=== PATIENT | female | born 1965 | race American Indian/Alaskan Native ===

== ENCOUNTER 2018-11-13 18:36 | Emergency (ER) | payer OTHER ==
--- NOTE | 2018-11-13 19:41 | Emergency Department Report ---
History of Present Illness - General Chief Complaint: Overdose Stated Complaint: CRYING OUT OF HELP/TOOK PILLS Time Seen by Provider: 11/13/18 19:09 Source: EMS Mode of arrival: Stretcher Limitations: No Limitations - History of Present Illness Initial Comments: 53-year-old female with a past medical history of multiple knee surgeries presents to the hospital complaints of overdose. Patient took 10 tablets of Dilaudid 2 mg pills and 5 tablets of diclofenac 50 mg pills between 5:30 and 6:30 PM. Patient is alert without any drowsiness. Patient states this was a cry for help. She has had multiple surgeries to her right knee since January the last surgery in April. Patient has been under pain management for less than one month. Dilaudid was not helping with pain. Patient recently has been trying Nucynta and Belbuca for pain cyst dialogue it was not helping. Her daughter also suggested CBD. 2 weeks ago patient had a nerve block done on the knee which actually worsened her pain. Patient has been feeling more depressed since pain has increased because she had to be re-dependent on her family members to move around the home. She admits to taking an excessive amount of the pills listed above as a "cry for help". Patient states if she truly wanted to kill herself she would have taken the whole bottle. She also contacted one of her family members and reread a verse in the Bible which made her feel better and seek medical care. - Related Data Home Medications Medication Instructions Recorded Confirmed Last Taken Belbuca 75 mcg SUBLINGUAL BID 11/13/18 11/13/18 Unknown Nucynta ER 50 mg PO BID 11/13/18 11/13/18 Unknown Allergies Allergy/AdvReac Type Severity Reaction Status Date / Time hydrocodone Allergy Itching Verified 11/13/18 20:40 morphine Allergy Itching Verified 11/13/18 20:40 oxycodone Allergy Itching Verified 11/13/18 20:40 ED Review of Systems ROS: Stated complaint: CRYING OUT OF HELP/TOOK PILLS Other details as noted in HPI Comment: All other systems reviewed and negative ED Past Medical Hx - Past Medical History Previous Medical History?: No - Surgical History Past Surgical History?: Yes Additional Surgical History: knee replacement bilateral, tubal ligation - Social History Smoking Status: Never Smoker Substance Use Type: None - Medications Home Medications: Home Medications Medication Instructions Recorded Confirmed Last Taken Type Belbuca 75 mcg SUBLINGUAL BID 11/13/18 11/13/18 Unknown History Nucynta ER 50 mg PO BID 11/13/18 11/13/18 Unknown History ED Physical Exam - General Limitations: No Limitations - Other Other exam information: General: No acute distress Head: Atraumatic Eyes: Normal appearance, Pupils equal and reactive to light, extraocular movements intact ENT: Normal oropharynx Neck: Normal appearance, no posterior or midline tenderness, no meningismus Chest: Clear to auscultation bilaterally, no wheezes, rales, or crackles CV: Regular rate and rhythm Abdomen: soft, nontender, nondistended, no rebound or guarding Back: Nontender Extremity: Right knee greater in size to the left knee from previous surgery. Tenderness to palpation limited movement Neuro: Alert and oriented 3, speech clear, no gross motor or sensory deficit Skin: No rash, redness, warmth ED Course Vital Signs 11/13/18 11/13/18 11/13/18 18:52 20:48 21:01 Temperature 97.8 F Pulse Rate 80 82 88 Respiratory 14 13 17 Rate Blood Pressure 141/67 147/76 Blood Pressure [Left] O2 Sat by Pulse 100 98 93 Oximetry 11/13/18 11/13/18 11/13/18 21:15 21:31 21:45 Temperature Pulse Rate 89 78 81 Respiratory 12 24 18 Rate Blood Pressure 147/76 162/93 162/93 Blood Pressure [Left] O2 Sat by Pulse 95 99 96 Oximetry 11/13/18 11/13/18 11/13/18 22:00 22:01 22:15 Temperature Pulse Rate 76 82 Respiratory 19 18 27 H Rate Blood Pressure 144/67 144/67 Blood Pressure [Left] O2 Sat by Pulse 96 86 Oximetry 11/13/18 11/13/18 11/13/18 22:31 22:32 22:33 Temperature Pulse Rate 75 76 Respiratory 8 L 18 20 Rate Blood Pressure 132/54 132/54 Blood Pressure [Left] O2 Sat by Pulse 93 100 Oximetry 11/13/18 11/13/18 11/13/18 22:45 23:01 23:15 Temperature Pulse Rate 90 73 76 Respiratory 17 23 25 H Rate Blood Pressure 132/54 123/50 123/50 Blood Pressure [Left] O2 Sat by Pulse 98 98 100 Oximetry 11/13/18 11/13/18 11/14/18 23:31 23:45 00:00 Temperature Pulse Rate 76 94 H 88 Respiratory 22 31 H 27 H Rate Blood Pressure 117/57 117/57 129/94 Blood Pressure [Left] O2 Sat by Pulse 100 99 93 Oximetry 11/14/18 11/14/18 11/14/18 00:15 00:31 00:45 Temperature Pulse Rate 95 H Respiratory 17 19 14 Rate Blood Pressure 129/94 129/94 165/77 Blood Pressure [Left] O2 Sat by Pulse 96 98 Oximetry 11/14/18 11/14/18 11/14/18 01:01 01:15 01:31 Temperature Pulse Rate Respiratory 29 H 26 H 22 Rate Blood Pressure 142/69 129/94 129/94 Blood Pressure [Left] O2 Sat by Pulse 98 98 97 Oximetry 11/14/18 11/14/18 11/14/18 01:45 02:01 02:15 Temperature Pulse Rate Respiratory 15 17 Rate Blood Pressure 143/78 161/84 161/84 Blood Pressure [Left] O2 Sat by Pulse 96 99 98 Oximetry 11/14/18 11/14/18 11/14/18 02:31 02:45 03:00 Temperature Pulse Rate Respiratory 21 21 18 Rate Blood Pressure 161/84 161/84 143/61 Blood Pressure [Left] O2 Sat by Pulse 99 96 99 Oximetry 11/14/18 11/14/18 11/14/18 03:15 03:31 03:45 Temperature Pulse Rate Respiratory 14 30 H 26 H Rate Blood Pressure 143/61 143/61 143/61 Blood Pressure [Left] O2 Sat by Pulse 97 96 99 Oximetry 11/14/18 11/14/18 11/14/18 04:00 04:15 04:31 Temperature Pulse Rate Respiratory 30 H Rate Blood Pressure 136/65 136/65 136/65 Blood Pressure [Left] O2 Sat by Pulse 98 98 97 Oximetry 11/14/18 11/14/18 11/14/18 04:49 05:00 05:15 Temperature Pulse Rate 89 79 98 H Respiratory 26 H 16 17 Rate Blood Pressure 136/65 150/66 150/66 Blood Pressure [Left] O2 Sat by Pulse 98 99 Oximetry 11/14/18 11/14/18 11/14/18 05:31 05:45 06:01 Temperature Pulse Rate 89 100 H Respiratory 19 16 18 Rate Blood Pressure 150/66 136/65 155/89 Blood Pressure [Left] O2 Sat by Pulse 99 99 98 Oximetry 11/14/18 11/14/18 11/14/18 06:15 06:31 06:45 Temperature Pulse Rate Respiratory 16 14 16 Rate Blood Pressure 155/89 155/89 155/89 Blood Pressure [Left] O2 Sat by Pulse 98 98 98 Oximetry 11/14/18 11/14/18 11/14/18 08:00 18:17 20:00 Temperature 98.6 F 98.1 F 98.1 F Pulse Rate 87 84 89 Respiratory 16 18 18 Rate Blood Pressure Blood Pressure 149/79 156/78 151/89 [Left] O2 Sat by Pulse 98 99 98 Oximetry 11/15/18 11/15/18 11/15/18 00:00 03:00 07:00 Temperature 98.2 F 98 F Pulse Rate 83 84 Respiratory 18 20 18 Rate Blood Pressure Blood Pressure 151/93 160/94 [Left] O2 Sat by Pulse 98 98 98 Oximetry 11/15/18 11/15/18 11/15/18 08:34 13:00 19:50 Temperature 97.9 F 98.2 F Pulse Rate 89 76 Respiratory 16 18 18 Rate Blood Pressure Blood Pressure 176/95 154/82 [Left] O2 Sat by Pulse 98 100 Oximetry - Reevaluation(s) Reevaluation #1: 11/14/18 00:42 Patient observed for over 6 hours and no signs of mental or respiratory depression. Awaiting urine collection and mental health evaluation - Consultations Consultation #1: 11/13/18 19:30 CASE D/W CLAIRE with poison control. Patient did not take a toxic dose of diclofenac. She states that Dilaudid peaks in one hour. Recommends 4 hour observation. Patient requires Narcan and then recommends 4-6 hours of observation after last Narcan dose prior to medical clearance. Respiratory and mental depression with intoxication. Recommends rule out coingestions. ED Medical Decision Making - Lab Data Result diagrams: 11/13/18 19:38 11/13/18 19:38 Lab Results 11/13/18 11/13/18 11/13/18 Range/Units 19:38 19:38 19:38 WBC 6.6 (4.5-11.0) K/mm3 RBC 4.33 (3.65-5.03) M/mm3 Hgb 10.5 (10.1-14.3) gm/dl Hct 32.4 (30.3-42.9) % MCV 75 L (79-97) fl MCH 24 L (28-32) pg MCHC 32 (30-34) % RDW 20.2 H (13.2-15.2) % Plt Count 282 (140-440) K/mm3 Lymph % (Auto) 25.8 (13.4-35.0) % [place] % (Auto) 10.3 H (0.0-7.3) % Eos % (Auto) 0.4 (0.0-4.3) % Baso % (Auto) 1.4 (0.0-1.8) % Lymph # 1.7 (1.2-5.4) K/mm3 [place] # 0.7 (0.0-0.8) K/mm3 Eos # 0.0 (0.0-0.4) K/mm3 Baso # 0.1 (0.0-0.1) K/mm3 Seg Neutrophils % 62.1 (40.0-70.0) % Seg Neutrophils # 4.1 (1.8-7.7) K/mm3 Sodium 139 (137-145) mmol/L Potassium 4.4 (3.6-5.0) mmol/L Chloride 101.0 (98-107) mmol/L Carbon Dioxide 27 (22-30) mmol/L Anion Gap 15 mmol/L BUN 10 (7-17) mg/dL Creatinine 0.6 L (0.7-1.2) mg/dL Estimated GFR > 60 ml/min BUN/Creatinine Ratio 17 % Glucose 100 (65-100) mg/dL Calcium 9.6 (8.4-10.2) mg/dL Total Bilirubin 0.30 (0.1-1.2) mg/dL AST 15 (5-40) units/L ALT 19 (7-56) units/L Alkaline Phosphatase 159 H (35-129) units/L Total Protein 8.5 H (6.3-8.2) g/dL Albumin 3.5 L (3.9-5) g/dL Albumin/Globulin Ratio 0.7 % Urine Color (Yellow) Urine Turbidity (Clear) Urine pH (5.0-7.0) Ur Specific [place] (1.003-1.030) Urine Protein (Negative) mg/dL Urine Glucose (UA) (Negative) mg/dL Urine Ketones (Negative) mg/dL Urine Blood (Negative) Urine Nitrite (Negative) Urine Bilirubin (Negative) Urine Urobilinogen (<2.0) mg/dL Ur Leukocyte Esterase (Negative) Urine WBC (Auto) (0.0-6.0) /HPF Urine RBC (Auto) (0.0-6.0) /HPF U Epithel Cells (Auto) (0-13.0) /HPF Urine Mucus /HPF Salicylates < 0.3 L (2.8-20.0) mg/dL Urine Opiates Screen Urine Methadone Screen Acetaminophen (10.0-30.0) ug/mL Ur Barbiturates Screen Ur Phencyclidine Scrn Ur Amphetamines Screen U Benzodiazepines Scrn Urine Cocaine Screen U Marijuana (THC) Screen Drugs of Abuse Note Plasma/Serum Alcohol (0-0.07) % 11/13/18 11/13/18 11/14/18 Range/Units 19:38 19:38 00:39 WBC (4.5-11.0) K/mm3 RBC (3.65-5.03) M/mm3 Hgb (10.1-14.3) gm/dl Hct (30.3-42.9) % MCV (79-97) fl MCH (28-32) pg MCHC (30-34) % RDW (13.2-15.2) % Plt Count (140-440) K/mm3 Lymph % (Auto) (13.4-35.0) % [place] % (Auto) (0.0-7.3) % Eos % (Auto) (0.0-4.3) % Baso % (Auto) (0.0-1.8) % Lymph # (1.2-5.4) K/mm3 [place] # (0.0-0.8) K/mm3 Eos # (0.0-0.4) K/mm3 Baso # (0.0-0.1) K/mm3 Seg Neutrophils % (40.0-70.0) % Seg Neutrophils # (1.8-7.7) K/mm3 Sodium (137-145) mmol/L Potassium (3.6-5.0) mmol/L Chloride (98-107) mmol/L Carbon Dioxide (22-30) mmol/L Anion Gap mmol/L BUN (7-17) mg/dL Creatinine (0.7-1.2) mg/dL Estimated GFR ml/min BUN/Creatinine Ratio % Glucose (65-100) mg/dL Calcium (8.4-10.2) mg/dL Total Bilirubin (0.1-1.2) mg/dL AST (5-40) units/L ALT (7-56) units/L Alkaline Phosphatase (35-129) units/L Total Protein (6.3-8.2) g/dL Albumin (3.9-5) g/dL Albumin/Globulin Ratio % Urine Color Yellow (Yellow) Urine Turbidity Cloudy (Clear) Urine pH 6.0 (5.0-7.0) Ur Specific [place] 1.013 (1.003-1.030) Urine Protein <15 mg/dl (Negative) mg/dL Urine Glucose (UA) Neg (Negative) mg/dL Urine Ketones Neg (Negative) mg/dL Urine Blood Sm (Negative) Urine Nitrite Neg (Negative) Urine Bilirubin Neg (Negative) Urine Urobilinogen < 2.0 (<2.0) mg/dL Ur Leukocyte Esterase Neg (Negative) Urine WBC (Auto) 1.0 (0.0-6.0) /HPF Urine RBC (Auto) 2.0 (0.0-6.0) /HPF U Epithel Cells (Auto) 20.0 H (0-13.0) /HPF Urine Mucus Few /HPF Salicylates (2.8-20.0) mg/dL Urine Opiates Screen Urine Methadone Screen Acetaminophen < 5.0 L (10.0-30.0) ug/mL Ur Barbiturates Screen Ur Phencyclidine Scrn Ur Amphetamines Screen U Benzodiazepines Scrn Urine Cocaine Screen U Marijuana (THC) Screen Drugs of Abuse Note Plasma/Serum Alcohol < 0.01 (0-0.07) % 11/14/18 Range/Units 00:39 WBC (4.5-11.0) K/mm3 RBC (3.65-5.03) M/mm3 Hgb (10.1-14.3) gm/dl Hct (30.3-42.9) % MCV (79-97) fl MCH (28-32) pg MCHC (30-34) % RDW (13.2-15.2) % Plt Count (140-440) K/mm3 Lymph % (Auto) (13.4-35.0) % [place] % (Auto) (0.0-7.3) % Eos % (Auto) (0.0-4.3) % Baso % (Auto) (0.0-1.8) % Lymph # (1.2-5.4) K/mm3 [place] # (0.0-0.8) K/mm3 Eos # (0.0-0.4) K/mm3 Baso # (0.0-0.1) K/mm3 Seg Neutrophils % (40.0-70.0) % Seg Neutrophils # (1.8-7.7) K/mm3 Sodium (137-145) mmol/L Potassium (3.6-5.0) mmol/L Chloride (98-107) mmol/L Carbon Dioxide (22-30) mmol/L Anion Gap mmol/L BUN (7-17) mg/dL Creatinine (0.7-1.2) mg/dL Estimated GFR ml/min BUN/Creatinine Ratio % Glucose (65-100) mg/dL Calcium (8.4-10.2) mg/dL Total Bilirubin (0.1-1.2) mg/dL AST (5-40) units/L ALT (7-56) units/L Alkaline Phosphatase (35-129) units/L Total Protein (6.3-8.2) g/dL Albumin (3.9-5) g/dL Albumin/Globulin Ratio % Urine Color (Yellow) Urine Turbidity (Clear) Urine pH (5.0-7.0) Ur Specific [place] (1.003-1.030) Urine Protein (Negative) mg/dL Urine Glucose (UA) (Negative) mg/dL Urine Ketones (Negative) mg/dL Urine Blood (Negative) Urine Nitrite (Negative) Urine Bilirubin (Negative) Urine Urobilinogen (<2.0) mg/dL Ur Leukocyte Esterase (Negative) Urine WBC (Auto) (0.0-6.0) /HPF Urine RBC (Auto) (0.0-6.0) /HPF U Epithel Cells (Auto) (0-13.0) /HPF Urine Mucus /HPF Salicylates (2.8-20.0) mg/dL Urine Opiates Screen Presumptive negative Urine Methadone Screen Presumptive negative Acetaminophen (10.0-30.0) ug/mL Ur Barbiturates Screen Presumptive negative Ur Phencyclidine Scrn Presumptive negative Ur Amphetamines Screen Presumptive negative U Benzodiazepines Scrn Presumptive negative Urine Cocaine Screen Presumptive negative U Marijuana (THC) Screen Presumptive negative Drugs of Abuse Note Disclamer Plasma/Serum Alcohol (0-0.07) % - EKG Data -: EKG Interpreted by Me EKG shows normal: sinus rhythm, axis (qrs -32), intervals (qtc 446), QRS complexes (qrsd 103), ST-T waves (no stemi) Rate: normal (72) - Differential Diagnosis depression, suicidal, chronic pain Critical Care Time: No Critical care attestation.: If time is entered above; I have spent that time in minutes in the direct care of this critically ill patient, excluding procedure time. ED Disposition Clinical Impression: Suicide attempt by drug overdose, Chronic pain of right knee, Medical clearance for psychiatric admission Disposition: DC-01 TO HOME OR SELFCARE Is pt being admited?: No Condition: Stable Instructions: Suicide Prevention for Adults (ED), Opioid Pain Management (ED) Additional Instructions: Discharged to go directly for inpatient admission to geriatric psych. Referrals: BRIONNA GONZALEZ MD [Primary Care Provider] - 3-5 Days [facility] [Outside] - 3-5 Days Time of Disposition: 21:28 (awaiting eval for placement/dispo)
[2018-11-13 19:52] LABS: Basophils # (Auto) 0.1 K/mm3 (0.0-0.1); Basophils % (Auto) 1.4 % (0.0-1.8); Eosinophils % (Auto) 0.4 % (0.0-4.3); Hematocrit 32.4 % (30.3-42.9); Hemoglobin 10.5 gm/dl (10.1-14.3); Lymphocytes # (Auto) 1.7 K/mm3 (1.2-5.4); Lymphocytes % (Auto) 25.8 % (13.4-35.0); Mean Corpuscular HGB Conc 32 % (30-34); Mean Corpuscular Volume 75 fl (79-97); Monocytes # (Auto) 0.7 K/mm3 (0.0-0.8); Monocytes % (Auto) 10.3 % (0.0-7.3); Platelet Count 282 K/mm3 (140-440); Red Blood Count 4.33 M/mm3 (3.65-5.03)
[2018-11-13 20:04] LABS: Red Cell Distribution Width 20.2 % (13.2-15.2)
[2018-11-13 20:45] LABS: Alanine Aminotransferase 19 units/L (7-56); Albumin 3.5 g/dL (3.9-5); BUN/Creatinine Ratio 17; Blood Urea Nitrogen 10 mg/dL (7-17); Calcium 9.6 mg/dL (8.4-10.2); Hemolysis Index 1
[2018-11-14 01:26] LABS: Bilirubin,Urine NEG (Negative); Blood,Urine SM (Negative); Color,Urine Yellow (Yellow); Mucus,Urine FEW /HPF; Protein,Urine <15 mg/dL mg/dL (Negative); Urobilinogen,Urine < 2.0 mg/dL (<2.0)
[2018-11-14 01:31] LABS: Amphetamine Screen,Urine PRESUMPTIVE NEGATIVE; Benzodiazepines Screen,Urine PRESUMPTIVE NEGATIVE; Cannabinoid Screen,Urine PRESUMPTIVE NEGATIVE; Cocaine Screen,Urine PRESUMPTIVE NEGATIVE; Methadone Screen,Urine PRESUMPTIVE NEGATIVE; Opiate Screen,Urine PRESUMPTIVE NEGATIVE
[2018-11-14] MEDS ORDERED: TYLENOL PO ONE (06:06)
[2018-11-14] MEDS ORDERED: TYLENOL ONE (06:10)
--- NOTE | 2018-11-14 10:28 | Consultation ---
History of Present Illness - Reason for Consult Consult date: 11/14/18 Reason for consult: Mental Health Evaluation Requesting physician: DIONE SANCHEZ - Chief Complaint Chief complaint: "I wanted the pain to go away" - History of Present Psychiatric Illness 53 y.o. AA female who presented to the ER for overdosing on several pills. Today the patient was calm and cooperative during the assessment. She stated that she wasn't trying to kill herself when she took several Dilaudid pills (other pills as well). She stated that she wanted the pain to go away. She stated that the pain she experience in her knees is "awful." She stated that she has a pain doctor at this time. She denies a mental health dx and any previous suicide attempts when asked. She denies being depressed, SI/HI's, and AVH's. She is adamant that she want the pain to be manage "better" by her doctor. She denies a poor appetite, but stated that her sleep can be "off" because of the pain. She denies recreational drug use and alcohol consumption (etoh). Medications and Allergies Allergies Allergy/AdvReac Type Severity Reaction Status Date / Time hydrocodone Allergy Itching Verified 11/13/18 20:40 morphine Allergy Itching Verified 11/13/18 20:40 oxycodone Allergy Itching Verified 11/13/18 20:40 Home Medications Medication Instructions Recorded Confirmed Last Taken Type Belbuca 75 mcg SUBLINGUAL BID 11/13/18 11/13/18 Unknown History Nucynta ER 50 mg PO BID 11/13/18 11/13/18 Unknown History Past psychiatric history - Past Medical History Past Medical History: other (Chronic Pain) Past Surgical History: Other (Bilateral knee replacement) - past Psychiatric treatment and history psychiatric treatment history: Denies a psy hx and fam psy hx. - Social History Social history: lives with family Mental Status Exam - Vital signs Last Vital Signs Temp 97.8 F 11/13/18 18:52 Pulse 100 H 11/14/18 05:45 Resp 16 11/14/18 06:45 BP 155/89 11/14/18 06:45 Pulse Ox 98 11/14/18 06:45 - Exam Narrative exam: MSE: Appearance: calm, cooperative Behavior: regular eye contact Speech: regular rate and tone Mood: "okay" Affect: congruent to mood Thought Process: circumstantial Thought Content: denies SI/HI's and AVH's Motor Activity: ambulatory Cognition: A/O x3 Insight: fair Judgment: variable Results Result Diagrams: 11/13/18 19:38 11/13/18 19:38 Abnormal lab results 11/13/18 11/13/18 11/13/18 Range/Units 19:38 19:38 19:38 MCV 75 L (79-97) fl MCH 24 L (28-32) pg RDW 20.2 H (13.2-15.2) % [place] % (Auto) 10.3 H (0.0-7.3) % Creatinine 0.6 L (0.7-1.2) mg/dL Alkaline Phosphatase 159 H (35-129) units/L Total Protein 8.5 H (6.3-8.2) g/dL Albumin 3.5 L (3.9-5) g/dL U Epithel Cells (Auto) (0-13.0) /HPF Salicylates < 0.3 L (2.8-20.0) mg/dL Acetaminophen (10.0-30.0) ug/mL 11/13/18 11/14/18 Range/Units 19:38 00:39 MCV (79-97) fl MCH (28-32) pg RDW (13.2-15.2) % [place] % (Auto) (0.0-7.3) % Creatinine (0.7-1.2) mg/dL Alkaline Phosphatase (35-129) units/L Total Protein (6.3-8.2) g/dL Albumin (3.9-5) g/dL U Epithel Cells (Auto) 20.0 H (0-13.0) /HPF Salicylates (2.8-20.0) mg/dL Acetaminophen < 5.0 L (10.0-30.0) ug/mL All other labs normal. Assessment and Plan Assessment and plan: Impression: Intentional Overdose. Today the patient was calm and cooperative during the assessment. DDx: MDD, Somatic Symptom DO Recommendation/Plan: Continue 1013 and gather collateral information from family. Dispo: Once collateral information is obtained, proper dispo will be determined. Will staff with Dr Dena Vilchis.
[2018-11-14] MEDS ORDERED: ULTRAM PO ONE ×3 (10:41→23:00)
[2018-11-14] MEDS ORDERED: MILK OF MAGNESIA PO ONE (13:54)
[2018-11-14] MEDS ORDERED: MILK OF MAGNESIA ONE (18:53)
[2018-11-15] MEDS ORDERED: ULTRAM PO ONE ×2 (09:20→17:05)
--- NOTE | 2018-11-15 14:07 | Progress Note ---
Subjective - Reason for Consult Consult date: 11/15/18 Reason for consult: Psychiatry Follow-up - Chief Complaint Chief complaint: "I don't remember everything" 53 y.o. AA female who presented to the ER for overdosing on several pills. Today the patient was calm and cooperative during the assessment. Per collateral information from the patient's daughter Kenya Chapman at [phone], she stated that her mother intentionally out several pills in her mouth, but spit them out. She stated that her mother talked about taking several pills the night before because she was tired of the pain. She stated that she feel like her mother wanted to kill herself. She stated that she want her mother to be stable before she return home. The patient stated, "I don't remember talking with my kids the night prior." She stated that she vaguely remember if she spit out the pills or swallowed them, the patient's UDS for opiates was negative. She stated that she felt "some type of way" prior to coming to the ER. She denies SI/HI's and AVH's. Mental Status Exam - Vital signs Last Vital Signs Temp 98 F 11/15/18 07:00 Pulse 84 11/15/18 07:00 Resp 16 11/15/18 08:34 BP 160/94 11/15/18 07:00 Pulse Ox 98 11/15/18 07:00 - Exam Narrative exam: MSE: Appearance: calm, cooperative Behavior: regular eye contact Speech: regular rate and tone Mood: "okay" Affect: congruent to mood Thought Process: circumstantial Thought Content: denies SI/HI's and AVH's Motor Activity: sitting up in bed Cognition: A/O x3 Insight: fair Judgment: variable Assessment and Plan Impression: MDD, Single Episode. Today the patient was calm and cooperative during the assessment. UDS is negative. DDx: Somatic Symptom DO Recommendation/Plan: Continue 1013. Discussed risks/benefits of SSRI's with the patient, she prefer talk therapy at this time. Dispo: The patient will be referred to inpatient psy services. Will staff with Dr Dena Vilchis.
[2018-11-15] MEDS ORDERED: PEPCID PO ONE (14:18)
--- NOTE | 2018-11-15 14:19 | Emergency Department Report ---
Blank Doc - Documentation Documentation: Nurse request for an antiacid for patient since she is having acid reflux. Pr parkerer placed an order for Pepcid 20 mg by mouth given now.
[2018-11-15 19:53] VITALS: BP 154/82
--- NOTE | 2018-11-15 21:26 | Emergency Department Report ---
Blank Doc - Documentation Documentation: Patient has been accepted for admission to geriatric psych and will be discha rged to go directly to the fifth floor.
== END 2018-11-15 22:42 | disposition home or self-care (01) ==
LOC: ED 18:36
DX: T40.2X2A Poisoning by other opioids, intentional self-harm, initial encounter (principal); T39.392A Poisoning by other nonsteroidal anti-inflammatory drugs [NSAID], intentional self-harm, initial encounter; Z98.890 Other specified postprocedural states; Z96.653 Presence of artificial knee joint, bilateral; Z98.51 Tubal ligation status; Z79.899 Other long term (current) drug therapy; Z88.6 Allergy status to analgesic agent; Y92.89 Other specified places as the place of occurrence of the external cause
CPT/HCPCS: 36415; 80053; 80307; 80320; 81001; 85025; 93005; 93010; 99285; G0480

== ENCOUNTER 2018-11-15 18:36 | Inpatient (IN) | payer OTHER ==
[2018-11-15] MEDS: IBUPROFEN PO PRN (23:48)
[2018-11-15] MEDS: ATIVAN PO PRN (23:49)
[2018-11-16] MEDS: ULTRAM PO PRN ×3 (03:41→18:01)
[2018-11-16 04:41] LABS: Chol/HDL Ratio 2.39 %
[2018-11-16] MEDS: IBUPROFEN PO PRN ×2 (08:50→18:01)
--- NOTE | 2018-11-16 18:58 | History and Physical Report ---
GP History & Physical - History of Present Illness Date of admission: 11/16/18 Reason for Admission: Danger to self Chief Complaint: "I was in lots of pain and I took extra pain pills " History of Present Illness: Patient seen today and examined by me. PATIENT is a 53-year-old female ORIGINALY from [facility]. Patient was 1013 because reportedly she overdosed on her pain pills. Patient admits that she has been struggling with depression for last couple of years, however she denies that it was a suicidal attempt. Patient says that she has been in lots of pain and she had 2 knee replacements and surgeries on both of her knees in 2017 and 2018 Patient was for 27 years but she has been for last couple of years, patient reports that infidelity on the part of her was one of the reason for the divorce. However, patient's is still lives in the same household. Patient reports that after the divorce he became severely depressed and "nonfunctional" and she feels sorry for him and she let him stay in the house. Patient admits that she has been struggling with depression but she blames her pain for her severe depression. She seems to be minimizing the impact of divorce in her life and the life of her children. It appears that patient intentionally overdosed on pain medications though it's not clear if it was a suicidal gesture but because of the nature of the attempt inpatient hospitalization and stabilization recommended. Legal Status: Voluntary Patient Problems: Current Active Problems Major depress dis, severe (Acute) Reaction to Hospitalization: Accepting Substance History - Substance History Drug Use: other (PATIENT DENIES ABUSE OF OPIOIDS BUT SEEMS DEPANDANT ON IT.) Alcohol Use: No Past psychiatric history - Past Medical History Past Medical History: arthritis Past Surgical History: arthroscopy, total knee replacement - past Psychiatric treatment and history Psych: Depression psychiatric treatment history: Patient denies any prior or formal past psychiatric history Review of Systems Constitutional: weakness, chronic pain Psychiatric: depression Results - Results Labs/Vitals: Laboratory Last Values Triglycerides 61 mg/dL (2-149) 11/15/18 22:32 Cholesterol 139 mg/dL (50-199) 11/15/18 22:32 80 mg/dL (50-130) 11/15/18 22:32 58 mg/dL (40-59) 11/15/18 22:32 2.39 % 11/15/18 22:32 TSH 1.260 mlU/mL (0.270-4.200) 11/15/18 22:32 Last Vital Signs Temp 98.1 F 11/15/18 23:45 Pulse 89 11/15/18 23:45 Resp 18 11/16/18 04:41 BP 146/84 11/15/18 23:45 Pulse Ox 100 11/15/18 23:45 Physical Examination - Constitutional Vitals: Vital Signs Temp Pulse Resp BP Pulse Ox 98.1 F 89 18 146/84 100 11/15/18 23:45 11/15/18 23:45 11/16/18 04:41 11/15/18 23:45 11/15/18 23:45 Temperature -Last 24 Hours Temperature 98.1 F General appearance: Present: mild distress - Psychiatric Psychiatric: appropriate mood/affect, depressed Mental Status Exam - Vital signs Last Vital Signs Temp 98.1 F 11/15/18 23:45 Pulse 89 11/15/18 23:45 Resp 18 11/16/18 04:41 BP 146/84 11/15/18 23:45 Pulse Ox 100 11/15/18 23:45 - Exam Orientation: time, place, person Affect: depressed, anxious Mood: congruent with affect Thought content: somatic Thought Process: Intact Perceptions: none Speech: normal rate and pattern Concentration: focused Motor activity: normal Level of consciousness: alert Memory: Intact Sleep Symptoms: Difficulty Falling Asleep Interaction: guarded Assessment and Plan - Psychiatric problem (1) Major depress dis, severe Current Visit: Yes Status: Acute Physician Certification - Certification Statement Physician Certification Statement: This is an acknowledgement statement that SUZAN SMITH is a 53 year old F who requires inpatient psychiatric admission for treatment which could reasonably be expected to improve the patient's condition for Estimated period of time patient will need to remain in the hospital: [5 TO 7 DAYS ] Plan for post-hospital care: [ ]
[2018-11-16] MEDS: ATIVAN PO PRN (21:22)
[2018-11-17] MEDS: IBUPROFEN PO PRN ×2 (01:48→21:12)
[2018-11-17] MEDS: ULTRAM PO PRN ×2 (02:07→15:52)
[2018-11-17] MEDS: CYMBALTA PO SCH (10:00)
--- NOTE | 2018-11-17 18:40 | Progress Note ---
Subjective Date of service: 11/17/18 Subjective Comment: Patient was seen today and examined by me. Patient is again focused on pain and she again complained of having lots of pain on both of her knee joints. She is still depressed but much of her depressive symptoms comes out in a somatic formation. She has legitimate pain issue but at the same time she is also struggling with depression but her insight is limited. she was reeducated and encouraged to comply with the treatment. Patient was also reeducated about the Cymbalta that can help her with pain as well as depression. Also told the patients that we might consider increasing the dose of Cymbalta over the period of time. She also asked for the physical therapy for both of her knee joints. Objective - Criteria for Continued Treatment Criteria for Continued Treatment: Improving Level of Functioning, Improving Treatment / Medication Compliance - Mental Status Mental Status: Oriented x 3 - Objective Observation Participation Level: Moderate Assessment and Plan - Patient Problems (1) Major depress dis, severe Current Visit: Yes Status: Acute
[2018-11-17] MEDS: ATIVAN PO PRN (21:29)
[2018-11-18] MEDS: ULTRAM PO PRN ×3 (03:56→21:22)
[2018-11-18] MEDS: IBUPROFEN PO PRN ×2 (08:13→17:19)
[2018-11-18] MEDS: CYMBALTA PO SCH (09:56)
--- NOTE | 2018-11-18 10:57 | Progress Note ---
Subjective Date of service: 11/18/18 Principal diagnosis: Major depress dis, severe Subjective Comment: Patient complains of severe right knee pain. She is not able to sleep well. Appetite is good, mood is improving. She is compliant with meds and denies side effects. Objective - Criteria for Continued Treatment Criteria for Continued Treatment: Improving Level of Functioning, Stablizing Level of Functioning, Improving Emotional/Socia - Objective Observation Participation Level: Moderate Assessment and Plan - Patient Problems (1) Major depress dis, severe Current Visit: Yes Status: Acute Plan to address problem: Continue inpatient treatment. Will consider increasing Cymbalta to help with pain and mood. Medications & Allergies - Medications Allergies/Adverse Reactions: Allergies hydrocodone Allergy (Verified 11/13/18 20:40) Itching morphine Allergy (Verified 11/13/18 20:40) Itching oxycodone Allergy (Verified 11/13/18 20:40) Itching Home Medications: Home Medications Medication Instructions Recorded Confirmed Last Taken Type Belbuca 75 mcg SUBLINGUAL BID 11/13/18 11/16/18 Unknown History Nucynta ER 50 mg PO BID 11/13/18 11/16/18 Unknown History Active Medications: Generic Name Dose Route Start Last Admin Trade Name Freq PRN Reason Stop Dose Admin Duloxetine HCl 30 mg 11/17/18 10:00 11/18/18 09:56 Cymbalta PO 30 mg QDAY ADÁN Administration Ibuprofen 800 mg 11/15/18 23:15 11/18/18 08:13 Ibuprofen PO 800 mg Q8H PRN Administration Pain, Mild (1-3) Lorazepam 1 mg 11/15/18 23:22 11/17/18 21:29 Ativan PO 1 mg Q4H PRN Administration Agitation Tramadol HCl 50 mg 11/15/18 23:17 11/18/18 03:56 Ultram PO 50 mg Q6H PRN Administration Pain, Moderate (4-6) Mental Status Exam - Vital signs Last Vital Signs Temp 97.7 F 11/18/18 09:27 Pulse 85 11/18/18 09:27 Resp 18 11/18/18 09:27 BP 126/76 11/18/18 09:27 Pulse Ox 97 11/18/18 09:27 - Exam Orientation: time, place, person Affect: depressed Mood: congruent with affect Perceptions: none Speech: normal rate and pattern Concentration: focused Motor activity: normal Level of consciousness: alert Memory: Intact Sleep Symptoms: Difficulty Falling Asleep Interaction: cooperative
--- NOTE | 2018-11-18 15:32 | Consultation ---
History of Present Illness - Reason for Consult Consult date: 11/18/18 right knee pain - History of Present Illness PATIENT is a 53-year-old female ORIGINALY from [facility] with h/o depress ion, drug overdose, s/p knee replacements and surgeries on both of her knees in 2017 and 2018, for last couple of years. Patient reports that after the divorce he became severely depressed and "nonfunctional" and admits that she has been struggling with depression. It appeared that patient intentionally overdosed on pain medications and brought to the ER, because of possibility for SI patient was admitted to [facility]. Medicine service consulted for chronic right knee pain. Patient denies any fever, chills. Review of System: Constitutional: no fever, no chills, no weight loss Ears, eyes, nose, mouth and throat: no nasal congestion, no nasal discharge, no sinus pressure, no vision change, no red eye. Neck: No neck pain or rigidity. Cardiovascular: No chest pain, no orthopnea, no palpitations, no leg swelling Respiratory: No shortness of breath, no cough, no congestion, no wheezing Gastrointestinal: no abdominal pain, no nausea, no vomiting Genitourinary : no dysuria, no hematuria Musculoskeletal: + right joint swelling, no muscle ache Integumentary: no rash, no pruritis Neurological: no parathesias, no numbness, no tingling Endocrine: no cold or heat intolerance, no polyuria or polydipsia Hematologic/Lymphatic: no easy bruising, no easy bleeding, no gland swelling Allergic/Immunologic: no urticaria, no angioedema. Past History Past Medical History: arthritis Past Surgical History: arthroscopy, total knee replacement (b/l) Medications and Allergies Allergies Allergy/AdvReac Type Severity Reaction Status Date / Time hydrocodone Allergy Itching Verified 11/13/18 20:40 morphine Allergy Itching Verified 11/13/18 20:40 oxycodone Allergy Itching Verified 11/13/18 20:40 Home Medications Medication Instructions Recorded Confirmed Last Taken Type Belbuca 75 mcg SUBLINGUAL BID 11/13/18 11/16/18 Unknown History Nucynta ER 50 mg PO BID 11/13/18 11/16/18 Unknown History Active Meds: Active Medications Duloxetine HCl (Cymbalta) 30 mg PO QDAY ADÁN Last Admin: 11/18/18 09:56 Dose: 30 mg Documented by: Ibuprofen (Ibuprofen) 800 mg PO Q8H PRN PRN Reason: Pain, Mild (1-3) Last Admin: 11/18/18 08:13 Dose: 800 mg Documented by: Lorazepam (Ativan) 1 mg PO Q4H PRN PRN Reason: Agitation Last Admin: 11/17/18 21:29 Dose: 1 mg Documented by: Tramadol HCl (Ultram) 50 mg PO Q6H PRN PRN Reason: Pain, Moderate (4-6) Last Admin: 11/18/18 13:06 Dose: 50 mg Documented by: Exam - Physical Exam Narrative exam: GENERAL: well-developed morbidly obese AAF lying on bed appeared to be in no discomfort. HEENT: Normocephalic. Atraumatic. No conjunctival congestion or icterus. Patient has moist mucous membranes. NECK: Supple. Trachea midline. CHEST/LUNGS: Clear to auscultated bilaterally, breathing nonlabored. No wheezes crackles or rhonchi. HEART/CARDIOVASCULAR: Regular in rate and rhythm. S1 and S2 positive. ABDOMEN: Abdomen is soft, nontender. Patient has normal bowel sounds. SKIN: There is no rash. Warm and dry. NEURO: No focal motor deficit. Follows command. MUSCULOSKELETAL: + right knee joint mild swelling w/o any tenderness or erythrema. EXTRIMITY: No edema, no cyanosis or clubbing. PSYCH: Cooperative. - Constitutional Vitals: Temp Pulse Resp BP Pulse Ox 97.7 F 85 18 126/76 97 11/18/18 09:27 11/18/18 09:27 11/18/18 09:27 11/18/18 09:27 11/18/18 09:27 Results - Labs CBC & Chem 7: 11/18/18 16:34 11/18/18 16:34 Assessment and Plan Right knee pain and swelling - appears chronic, no sign of active infection, joint is not tender on palpation, no fever - will check, CBC, BMP, ESR and right knee xry - cont supportive care Constipation, start on stool softner Depression, per primary Dvt Px, lovenox
--- NOTE | 2018-11-18 16:33 | XRay Report ---
RIGHT KNEE 3 VIEWS INDICATION / CLINICAL INFORMATION: knee pain COMPARISON: None available. FINDINGS: BONES / JOINT(S): No acute fracture or subluxation. There is a revision knee arthroplasty SOFT TISSUES: Soft tissue swelling around the knee. There is some lucency noted around the distal end of the tibial component raising the possibility of loosening. ADDITIONAL FINDINGS: None. Signer Name: Steven Benitez MD Signed: 11/18/2018 4:28 PM Workstation Name: [id number]
[2018-11-18 16:50] LABS: Hematocrit 33.5 % (30.3-42.9); Hemoglobin 10.7 gm/dl (10.1-14.3); Mean Corpuscular HGB Conc 32 % (30-34); Mean Corpuscular Volume 75 fl (79-97); Platelet Count 341 K/mm3 (140-440); Red Blood Count 4.46 M/mm3 (3.65-5.03); Red Cell Distribution Width 19.5 % (13.2-15.2)
[2018-11-18 17:11] LABS: BUN/Creatinine Ratio 16; Blood Urea Nitrogen 11 mg/dL (7-17); Calcium 9.6 mg/dL (8.4-10.2); Hemolysis Index 17
[2018-11-18] MEDS: COLACE PO SCH ×2 (17:11→21:22)
[2018-11-18] MEDS: MIRALAX 3350 PO SCH (17:11)
[2018-11-18 18:05] LABS: Erythrocyte Sedimentation Rate 95 mm/Hr (0-20)
[2018-11-18 20:18] VITALS: BP 141/69
[2018-11-18] MEDS: ATIVAN PO PRN (21:21)
[2018-11-19] MEDS: ULTRAM PO PRN ×3 (02:54→18:20)
[2018-11-19] MEDS ORDERED: CLEOCIN PO SCH (08:00)
[2018-11-19] MEDS: MIRALAX 3350 PO SCH (09:06)
[2018-11-19] MEDS: CYMBALTA PO SCH (09:07)
[2018-11-19] MEDS: COLACE PO SCH (09:07)
--- NOTE | 2018-11-19 09:46 | Discharge Summary ---
Providers - Providers Date of Admission: 11/15/18 18:39 Date of discharge: 11/19/18 Attending physician: JONNY HURST MD 11/15/18 18:39 Consult to Physician [CONS] Routine Comment: Consulting Provider: NURY EMERY Physician Instructions: Reason For Exam: [facility]NAGEMENT 11/18/18 11:10 Physical Therapy Evaluation and Treat [CONS] Routine Comment: Reason For Exam: c/o R knee pain, stiffiness, not able to ambulate Mode of Transport?: Wheelchair Weight bearing status?: Partial wt bearing Assistive devices?: No Date of last referral: 11/18/18 Referring MD: DANIEL WALTERS Primary care physician: [facility], Hospitalization Reason for admission: Patient was 1013 because reportedly she overdosed on her pain pills. Condition: Good Hospital course: The patient was provided inpatient psychiatric treatment with safe and supportive environment, group therapy, individual counseling, psychiatric medication, medication adjustment, adverse effect monitor, medical evaluation, medical treatment, social service assessment, family/social support meeting, placement assessment and psycho-education. The patients mood, anxiety, thoughts, stress management skill, cognition, impulse/anger control, motivation, understanding of disease, compliance to treatment and appreciation on family/social support are improved and stabilized. At the time of discharge, the patient had no suicidal ideas, no homicidal ideas, no aggressive thoughts, no endangering behavior and no debilitating adverse effects. The patient agreed on the treatment plan, understood the risk, benefit, alternative treatment, potential consequence of no treatment, and gave informed consent. Disposition: DC-01 TO HOME OR SELFCARE Allergies/Adverse Reactions: Allergies hydrocodone Allergy (Verified 11/13/18 20:40) Itching morphine Allergy (Verified 11/13/18 20:40) Itching oxycodone Allergy (Verified 11/13/18 20:40) Itching Vital Signs: Last Vital Signs Temp 97.3 F L 11/18/18 19:44 Pulse 71 11/18/18 19:44 Resp 16 11/18/18 20:18 BP 141/69 11/18/18 19:44 Pulse Ox 98 11/18/18 19:44 Last Lab: Laboratory Last Values WBC 6.0 K/mm3 (4.5-11.0) 11/18/18 16:34 RBC 4.46 M/mm3 (3.65-5.03) 11/18/18 16:34 Hgb 10.7 gm/dl (10.1-14.3) 11/18/18 16:34 Hct 33.5 % (30.3-42.9) 11/18/18 16:34 MCV 75 fl (79-97) L 11/18/18 16:34 MCH 24 pg (28-32) L 11/18/18 16:34 MCHC 32 % (30-34) 11/18/18 16:34 RDW 19.5 % (13.2-15.2) H 11/18/18 16:34 Plt Count 341 K/mm3 (140-440) 11/18/18 16:34 ESR 95 mm/Hr (0-20) 11/18/18 16:34 Sodium 138 mmol/L (137-145) 11/18/18 16:34 Potassium 4.4 mmol/L (3.6-5.0) 11/18/18 16:34 Chloride 98.0 mmol/L (98-107) 11/18/18 16:34 Carbon Dioxide 26 mmol/L (22-30) 11/18/18 16:34 18 mmol/L 11/18/18 16:34 BUN 11 mg/dL (7-17) 11/18/18 16:34 0.7 mg/dL (0.7-1.2) 11/18/18 16:34 Estimated GFR > 60 ml/min 11/18/18 16:34 16 % 11/18/18 16:34 Glucose 94 mg/dL (65-100) 11/18/18 16:34 Calcium 9.6 mg/dL (8.4-10.2) 11/18/18 16:34 Triglycerides 61 mg/dL (2-149) 11/15/18 22:32 Cholesterol 139 mg/dL (50-199) 11/15/18 22:32 80 mg/dL (50-130) 11/15/18 22:32 58 mg/dL (40-59) 11/15/18 22:32 2.39 % 11/15/18 22:32 TSH 1.260 mlU/mL (0.270-4.200) 11/15/18 22:32 - Discharge Diagnoses (1) Major depress dis, severe Status: Acute Core Measure Documentation - Palliative Care Palliative Care/ Comfort Measures: Not Applicable - Core Measures Any of the following diagnoses?: none - VTE Discharge Requirements Deep Vein Thrombosis/Pulmonary Embolism Present on Admission: No Has pt received <5 days of overlap therapy or INR<2.0: No Anticoagulant overlap therapy prescribed at discharge: No Contraindication No Overlap Therapy order at DC: Not Indicated Exam - Constitutional Vitals: Temp Pulse Resp BP Pulse Ox 97.3 F L 71 16 141/69 98 11/18/18 19:44 11/18/18 19:44 11/18/18 20:18 11/18/18 19:44 11/18/18 19:44 General appearance: Present: no acute distress, well-nourished - EENT Eyes: Present: PERRL, EOM intact ENT: hearing intact, clear oral mucosa - Neck Neck: Present: supple, normal ROM - Respiratory Respiratory effort: normal Plan Care Plan Goals: Improved and stable mood Plan of Treatment: Ensure medication compliance and outpatient follow up Health Concerns: Chronic knee pain Assessment: Major depressive disorder, severe Follow up with: AJAY ESPINOZAMARION JUNCTION MD TARIK [Primary Care Provider] - 7 Days Prescriptions: Sulfamethoxazole/Trimethoprim [Bactrim DS TAB] 1 each PO Q12HR #10 tablet Docusate Sodium [Colace CAP] 100 mg PO BID #60 capsule DULoxetine [Cymbalta] 30 mg PO QDAY #30 capsule Polyethylene Glycol 3350 [Miralax 3350] 17 gm PO QDAY #30 powd.pack Ibuprofen [Motrin 800 MG tab] 800 mg PO Q8H PRN #30 tablet PRN Reason: Pain, Mild (1-3) traMADol [Ultram 50 MG tab] 50 mg PO Q6H PRN #30 tablet PRN Reason: Pain, Moderate (4-6)
[2018-11-19] MEDS ORDERED: BACTRIM DS PO SCH (10:00)
[2018-11-19] MEDS: IBUPROFEN PO PRN (11:57)
--- NOTE | 2018-11-19 12:52 | Progress Note ---
Assessment and Plan Right knee pain and swelling - appears chronic, right knee xry showed soft tissue swelling around the knee, clinically no stigmata of active infection - if symptom worsen wound treat with abx for a week for possible cellulitis - can f/u as outpt Constipation, cont on stool softner Depression, per primary Dvt Px, lovenox Subjective Date of service: 11/19/18 Principal diagnosis: Major depress dis, severe Interval history: Patient seen and examined, no acute issue o/n Objective - Exam Narrative Exam: GENERAL: well-developed morbidly obese AAF lying on bed appeared to be in no discomfort. HEENT: Normocephalic. Atraumatic. No conjunctival congestion or icterus. Sophia ent has moist mucous membranes. NECK: Supple. Trachea midline. CHEST/LUNGS: Clear to auscultated bilaterally, breathing nonlabored. No wheezes crackles or rhonchi. HEART/CARDIOVASCULAR: Regular in rate and rhythm. S1 and S2 positive. ABDOMEN: Abdomen is soft, nontender. Patient has normal bowel sounds. SKIN: There is no rash. Warm and dry. NEURO: No focal motor deficit. Follows command. MUSCULOSKELETAL: + right knee joint mild swelling w/o any tenderness or erythrema. EXTRIMITY: No edema, no cyanosis or clubbing. PSYCH: Cooperative. - Labs CBC & Chem 7: 11/18/18 16:34 11/18/18 16:34 Labs: Abnormal lab results 11/18/18 Range/Units 16:34 MCV 75 L (79-97) fl MCH 24 L (28-32) pg RDW 19.5 H (13.2-15.2) %
== END 2018-11-19 18:24 | disposition home or self-care (01) | DRG 885 ==
LOC: 3A 18:36 → UNDOADMIN 18:36 → 5A 18:39
PROVIDERS: ADMIT Specialist; ATTEND Specialist
DX: F32.2 Major depressive disorder, single episode, severe without psychotic features (principal); Z68.41 Body mass index [BMI] 40.0-44.9, adult; K59.00 Constipation, unspecified; M25.461 Effusion, right knee; E66.01 Morbid (severe) obesity due to excess calories; G89.29 Other chronic pain; M25.561 Pain in right knee; Z96.653 Presence of artificial knee joint, bilateral; M19.90 Unspecified osteoarthritis, unspecified site; Z88.5 Allergy status to narcotic agent
CPT/HCPCS: 36415; 80048; 80061; 84443; 85027; 85652; G0378